=== PATIENT | female | born 1965 | race African-American/Black ===

== ENCOUNTER 2024-04-19 20:33 | Observation (INO) | payer MEDICARE ==
--- NOTE | 2024-04-19 20:49 | ED ---
General Adult HPI - General Chief complaint: Chest Pain Stated complaint: Chest pain Time Seen by Provider: 04/19/24 20:34 Source: EMS Mode of arrival: EMS Limitations: no limitations - History of Present Illness Initial comments: Patient is a 59-year-old female past medical history of hypertension, cocaine abuse, alcohol abuse in remission presenting today from [facility] for chest pain. Patient states she went to get out of bed and began having pressure-like chest pain across the right side of her chest that radiated to her back. EMS was called, no medications were given prior to arrival. Patient denies diaphoresis, nausea, vomiting. Endorses associated shortness of breath. Denies recent fevers. Endorses cough productive of clear sputum. Denies hemoptysis. She is a current smoker. States she has not used cocaine today and has been at [facility] for the last 3 days for recovery for alcohol and cocaine abuse. Pt's mother had a heart attack in her 40s. Pt states that she was told she had a "mini stroke" and "mini heart attack" when she was admitted to [facility] 3 years ago. Takes metoprolol BID, unsure of dose. - Related Data Allergies Allergy/AdvReac Type Severity Reaction Status Date / Time aspirin AdvReac Nausea & Verified 04/19/24 20:45 Vomiting Review of Systems ROS Statement: Those systems with pertinent positive or pertinent negative responses have been documented in the HPI. ROS Other: All systems not noted in ROS Statement are negative. Constitutional: Denies: fever, chills Eyes: Denies: vision change Respiratory: Reports: cough, dyspnea. Denies: hemoptysis Cardiovascular: Reports: chest pain. Denies: edema Gastrointestinal: Denies: abdominal pain, nausea, vomiting Neurological: Denies: headache, weakness, numbness Past Medical History Past Medical History: COPD, Hypertension History of Any Multi-Drug Resistant Organisms: None Reported Past Surgical History: Hernia Repair, Orthopedic Surgery Additional Past Surgical History / Comment(s): Cyst removed from back Past Psychological History: Schizophrenia Smoking Status: Current every day smoker Past Alcohol Use History: Heavy Past Drug Use History: Cocaine, Marijuana, Opiates, Prescription Drug Abuse General Exam - General Exam Comments Initial Comments: PE: CONSTITUTIONAL: No apparent distress, well appearing SKIN: Warm, dry, no jaundice, hives or petechiae EYES: Pupils are equally round, extraocular movements intact without nystagmus, clear conjunctiva, non-icteric sclera HENT: Normocephalic, atraumatic, moist mucus membranes, oropharynx clear without exudates NECK: , Full range of motion, normal appearance PULMONARY: Scant rhonchi bilaterally, no crackles or wheezes, normal excursion, no accessory muscle use and no stridor CARDIOVASCULAR: Regular rate, rhythm, normal S1 and S2. No appreciated murmurs, rubs or gallops. Strong radial pulses with intact distal perfusion. No lower extremity edema. Some reproducible chest wall tenderness palpation of the right chest wall GASTROINTESTINAL: Soft, active bowel sounds throughout, non-tender, non- distended, no palpable masses, no rebound or guarding. No hepatosplenomegaly MUSCULOSKELETAL: Extremities have no gross deformity, no edema, redness, or swelling. No calf swelling NEUROLOGIC:_a/o x 3, GCS 15, normal mentation and speech. Moves all extremities x 4 without motor or sensory deficit PSYCHIATRIC:_normal mood and affect, thought process is clear and linear Limitations: no limitations Course Vital Signs 04/19/24 04/19/24 04/19/24 20:39 21:43 22:06 Temperature 98.4 F Pulse Rate 67 70 68 Respiratory 18 16 18 Rate Blood Pressure 170/125 152/116 140/91 O2 Sat by Pulse 98 99 95 Oximetry 04/19/24 04/20/24 23:28 00:26 Temperature Pulse Rate 74 71 Respiratory 16 18 Rate Blood Pressure 142/94 122/72 O2 Sat by Pulse 98 96 Oximetry EKG Findings - EKG Comments: EKG Findings:: Sinus rhythm with first-degree AV block, rate 60 bpm GA interval 220 ms, QT/QTc 402/411 ms, normal axis, no ST elevations or depressions, no STEMI, no prior for comparison Medical Decision Making - Medical Decision Making Was pt. sent in by a medical professional or institution (, PA, LODGING FACILITIES ATTENDANT, urgent care, hospital, or correction...) When possible be specific @Patient was sent from [facility] Did you speak to anyone other than the patient for history (EMS, parent, family, police, friend...)? What history was obtained from this source @ -[No] Did you review nursing and triage notes (agree or disagree)? Why? @ -[I reviewed nursing and triage notes] Were old charts reviewed (outside hosp., previous admission, EMS record, old EKG, old radiological studies, urgent care reports/EKG's, correction records)? Report findings @ -[Medical records reviewed] Differential Diagnosis (chest pain, altered mental status, abdominal pain women, abdominal pain men, vaginal bleeding, weakness, fever, dyspnea, syncope, headache, dizziness, GI bleed, back pain, seizure, CVA, palpatations, mental health, musculoskeletal)? @Differential Chest Pain: Stable Angina, Unstable Angina, STEMI, NSTEMI Aortic Dissection, pericarditis, pleurisy, chostochondirits, Pneumothorax, Musculoskeletal, Esophageal Spasm GERD, Cholecystitis, Pancreatitis, Zoster, this is not meant to be an all- inclusive list. EKG interpreted by me (3pts min.). @ -[As above] X-rays interpreted by me (1pt min.). @ -[None done] CT interpreted by me (1pt min.). @On review of CT scan I see no evidence of aortic dissection U/S interpreted by me (1pt. min.). @ -[None done] What testing was considered but not performed or refused? (CT, X-rays, U/S, labs)? Why? @ -[None] What meds were considered but not given or refused? Why? @IV morphine was considered for pain control however patient's pain became controlled with sublingual nitroglycerin Did you discuss the management of the patient with other professionals (professionals i.e. , PA, LODGING FACILITIES ATTENDANT, lab, RT, psych nurse, social service assistant, circuit breaker supervisor, teacher, plant protection officer, caseworker)? Give summary @ -[No] Was smoking cessation discussed for >3mins.? @ -[No] Was critical care preformed (if so, how long)? @ -Yes 35 minutes Were there social determinants of health that impacted care today? How? (Homelessness, low income, unemployed, alcoholism, drug addiction, transportation, low edu. Level, literacy, decrease access to med. care, senior living, rehab)? @ -[No] Was there de-escalation of care discussed even if they declined (Discuss DNR or withdrawal of care, Hospice)? @ -[No] What co-morbidities impacted this encounter? (DM, HTN, Smoking, COPD, CAD, Cancer, CVA, ARF, Chemo, Hep., AIDS, mental health diagnosis, sleep apnea, morbid obesity)? @Hypertension, remote history alcohol and drug abuse Was patient admitted / discharged? Hospital course, mention meds given and route, prescriptions, significant lab abnormalities, going to OR and other pertinent info. @ -Admission-patient is a pleasant 59-year-old female past medical history hypertension, currently in recovery from alcohol and drug dependence, presenting today for right sided chest pressure radiating to the back that began upon trying to stand from her bed earlier this evening. Of note, pt denies any cocaine use today or since admission to [facility]. Patient is significantly hypertensive on arrival, 170/125, in no acute distress. Complete history and physical exam performed. Will plan for subungual nitroglycerin for chest pain and hypertension, given chest pain radiating to back and significant hype rtension CT dissection study was ordered in addition to comprehensive labs. 324 mg aspirin. Will add morphine for pain control should patient's pain fail to be controlled with nitroglycerin. Patient agreeable plan of care Labs and imaging reviewed. Grossly within normal limits. Abnormal values not concerning for acute pathology related to presenting complaint. Including normal initial troponin. CT dissection study negative for dissection. Did note bulky uterus. On reassessment, blood pressure is much improved status post sublingual nitro, systolic blood pressure in 190, patient noted moderate improvement in pain with sublingual nitroglycerin however it is still present. Patient was given additional sublingual nitroglycerin, patient did develop a headache after for sublingual nitroglycerin so Tylenol was ordered. Discussed with patient results with her and plan for admission given significant risk factors insetting of chest pain hypertension. Patient agreeable w/ plan of car e. Case discussed with CAROLIN Elias, kindly accepts patient for admission. Of note, pt requested her nightly dose of metoprolol. Unsure of dose. Dose not available in chart on review. Ordered 25 mg BID. Undiagnosed new problem with uncertain prognosis? @ -[No] Drug Therapy requiring intensive monitoring for toxicity (Heparin, Nitro, Insulin, Cardizem)? @ -[No] Were any procedures done? @ -[No] Diagnosis/symptom? Hypertensive urgency, Chest Pain Acute, or Chronic, or Acute on Chronic? acute Uncomplicated (without systemic symptoms) or Complicated (systemic symptoms)? complicated Side effects of treatment? @ -[No] Exacerbation, Progression, or Severe Exacerbation? @ -[No] Poses a threat to life or bodily function? How? (Chest pain, [place], [place], pneumonia, PE, COPD, DKA, ARF, appy, cholecystitis, CVA, Diverticulitis, Homicidal, Suicidal, threat to staff... and all critical care pts) Yes - Lab Data Result diagrams: 04/19/24 20:58 04/19/24 20:58 Lab Results 04/19/24 04/19/24 04/19/24 Range/Units 20:58 20:58 20:58 WBC 6.3 (3.8-10.6) k/uL RBC 4.40 (3.80-5.40) m/uL Hgb 14.0 (11.4-16.0) gm/dL Hct 43.9 (34.0-46.0) % MCV 99.9 (80.0-100.0) fL MCH 31.8 (25.0-35.0) pg MCHC 31.8 (31.0-37.0) g/dL RDW 15.1 (11.5-15.5) % Plt Count 355 (150-450) k/uL MPV 7.0 Neutrophils % 55 % Lymphocytes % 38 % Monocytes % 2 % Eosinophils % 3 % Basophils % 0 % Neutrophils # 3.4 (1.3-7.7) k/uL Lymphocytes # 2.4 (1.0-4.8) k/uL Monocytes # 0.1 (0-1.0) k/uL Eosinophils # 0.2 (0-0.7) k/uL Basophils # 0.0 (0-0.2) k/uL Macrocytosis Slight PT 9.7 L (10.0-12.5) sec INR 0.9 (<1.2) APTT 24.5 (22.0-30.0) sec Sodium 138 (137-145) mmol/L Potassium 4.9 (3.5-5.1) mmol/L Chloride 106 (98-107) mmol/L Carbon Dioxide 22 (22-30) mmol/L Anion Gap 10 mmol/L BUN 15 (7-17) mg/dL Creatinine 0.60 (0.52-1.04) mg/dL Est GFR (CKD-EPI)AfAm >90 (>60 ml/min/1.73 sqM) Est GFR (CKD-EPI)NonAf >90 (>60 ml/min/1.73 sqM) Glucose 96 (74-99) mg/dL Calcium 9.4 (8.4-10.2) mg/dL Magnesium 1.8 (1.6-2.3) mg/dL Total Bilirubin 0.5 (0.2-1.3) mg/dL AST 29 (14-36) U/L ALT 13 (4-34) U/L Alkaline Phosphatase 74 (38-126) U/L Troponin I (0.000-0.034) ng/mL NT-Pro-B Natriuret Pep 73 pg/mL Total Protein 7.9 (6.3-8.2) g/dL Albumin 4.4 (3.5-5.0) g/dL Lipase 55 (23-300) U/L 04/19/24 Range/Units 20:58 WBC (3.8-10.6) k/uL RBC (3.80-5.40) m/uL Hgb (11.4-16.0) gm/dL Hct (34.0-46.0) % MCV (80.0-100.0) fL MCH (25.0-35.0) pg MCHC (31.0-37.0) g/dL RDW (11.5-15.5) % Plt Count (150-450) k/uL MPV Neutrophils % % Lymphocytes % % Monocytes % % Eosinophils % % Basophils % % Neutrophils # (1.3-7.7) k/uL Lymphocytes # (1.0-4.8) k/uL Monocytes # (0-1.0) k/uL Eosinophils # (0-0.7) k/uL Basophils # (0-0.2) k/uL Macrocytosis PT (10.0-12.5) sec INR (<1.2) APTT (22.0-30.0) sec Sodium (137-145) mmol/L Potassium (3.5-5.1) mmol/L Chloride (98-107) mmol/L Carbon Dioxide (22-30) mmol/L Anion Gap mmol/L BUN (7-17) mg/dL Creatinine (0.52-1.04) mg/dL Est GFR (CKD-EPI)AfAm (>60 ml/min/1.73 sqM) Est GFR (CKD-EPI)NonAf (>60 ml/min/1.73 sqM) Glucose (74-99) mg/dL Calcium (8.4-10.2) mg/dL Magnesium (1.6-2.3) mg/dL Total Bilirubin (0.2-1.3) mg/dL AST (14-36) U/L ALT (4-34) U/L Alkaline Phosphatase (38-126) U/L Troponin I <0.012 (0.000-0.034) ng/mL NT-Pro-B Natriuret Pep pg/mL Total Protein (6.3-8.2) g/dL Albumin (3.5-5.0) g/dL Lipase (23-300) U/L Disposition Clinical Impression: Chest pain, Hypertensive urgency Disposition: ADMITTED IP TO THIS HOSP Condition: Stable
[2024-04-19] MEDS: ASPIRIN 81 MG PO STA (21:03)
[2024-04-19] MEDS: ONDANSETRON 4 MG/2 ML VIAL IVP STA (21:04)
[2024-04-19] MEDS: NITROGLYCERIN SL TABS 0.4 MG TAB SUBLINGUAL STA (21:04)
[2024-04-19 21:24] LABS: Basophils % (A) 0 %; Eosinophils # (A) 0.2 k/uL (0-0.7); Eosinophils % (A) 3 %; HCT 43.9 % (34.0-46.0); Lymphocytes # (A) 2.4 k/uL (1.0-4.8); Lymphocytes % (A) 38 %; MCH 31.8 pg (25.0-35.0); MCHC 31.8 g/dL (31.0-37.0); MCV 99.9 fL (80.0-100.0); Macrocytosis Slight; Monocytes # (A) 0.1 k/uL (0-1.0); Monocytes % (A) 2 %; Neutrophils # (A) 3.4 k/uL (1.3-7.7); Neutrophils % (A) 55 %; Platelet Count 355 k/uL (150-450); RDW 15.1 % (11.5-15.5); WBC 6.3 k/uL (3.8-10.6)
[2024-04-19 21:33] LABS: INR 0.9 (<1.2); Partial Thromboplastin Time 24.5 sec (22.0-30.0); Prothrombin Time 9.7 sec (10.0-12.5)
[2024-04-19 21:39] LABS: ALT 13 U/L (4-34); AST 29 U/L (14-36); African American GFR (CKD) >90 (>60 ml/min/1.73 sqM); Albumin 4.4 g/dL (3.5-5.0); Alkaline Phosphatase 74 U/L (38-126); Anion Gap 10 mmol/L; Blood Urea Nitrogen 15 mg/dL (7-17); Calcium 9.4 mg/dL (8.4-10.2); Carbon Dioxide 22 mmol/L (22-30); Chloride 106 mmol/L (98-107); Glucose 96 mg/dL (74-99); Lipase 55 U/L (23-300); Magnesium 1.8 mg/dL (1.6-2.3); Non-African American GFR(CKD) >90 (>60 ml/min/1.73 sqM); Potassium 4.9 mmol/L (3.5-5.1); Sodium 138 mmol/L (137-145); Total Bilirubin 0.5 mg/dL (0.2-1.3); Total Protein 7.9 g/dL (6.3-8.2)
--- NOTE | 2024-04-19 21:43 | CT ---
EXAMINATION TYPE: CT angio thor/abd pel aorta DATE OF EXAM: 04/19/2024 9:32 PM COMPARISON: None. CLINICAL INDICATION: Female, 59 years old with history of chest pain rad. to back, HTN, back and ches t pain with elevated BP TECHNIQUE: Axial images at 5 mm thick sections. Reconstructed images in the coronal plane. Delayed images through the kidneys. Contrast used:100ml mL of Isovue 300 with IV Contrast, (none if empty) Oral contrast used: (none if empty) CT DLP: 1783 mGycm, Automated exposure control for dose reduction was used. FINDINGS: CT CHEST: Portion of the thyroid visualized is normal. No suspicious lung nodules or focal infiltrates are present. Extensive upper lung emphysematous changes are present. Very large bulla is present in the right apex . No enlarged mediastinal or hilar adenopathy is evident. The ascending aorta diameter at the level of the main pulmonary artery is 3.6 cm. The main pulmonary artery diameter at the bifurcation is 3.5 cm. Aorta tapers normally throughout its visualized cours e1. No dissection is evident. CT ABDOMEN: Liver: Normal Spleen: Normal Pancreas: Normal Adrenal glands: The adrenal glands are normal. Gallbladder: Normal Kidneys: No masses are evident. No hydronephrosis is present. No cysts are present. Delayed images were obtained through the kidneys, which remain unremarkable. Aorta: Vascular calcification is within the aorta. Air tapers to its abdominal course to the bifurca tion. Common iliac vessels appear normal. Internal and external iliac vessels are patent. Common femo ral arteries are patent. No dissections are evident. Inferior vena cava: Normal. CT PELVIS: Loops of bowel within the abdomen and pelvis are normal. This study is without oral contrast limi ting bowel evaluation Appendix: Normal as visualized. Urinary bladder: Normal. Genitourinary structures: Uterus is prominent adnexa appear within normal limits Osseous structures: No suspicious lytic or sclerotic lesions. IMPRESSION: 1. Vascular calcification within the aorta. No dissection or aneurysm is evident. No focal stenosis i dentified. 2. Somewhat bulky uterus. 3. Advanced emphysematous changes with especially notable bleb or bulla at the right apex [facility], , 04/19/2024 9:40 PM
[2024-04-19 21:47] LABS: NT-Pro-B-Type Natriuretic Pept 73 pg/mL
[2024-04-19] MEDS: ACETAMINOPHEN TAB 325 MG TAB PO STA (22:16)
[2024-04-19] MEDS: MAG HYDROX/AL HYDROX/SIMETH 30 ML CUP PO STA (22:16)
[2024-04-19] MEDS: FAMOTIDINE 20 MG TAB PO STA (22:16)
[2024-04-19] MEDS ORDERED: NALOXONE 0.4 MG/ML 1 ML VIAL IV PRN (23:33)
[2024-04-19] MEDS ORDERED: ONDANSETRON 4 MG/2 ML VIAL IVP PRN (23:33)
[2024-04-19] MEDS ORDERED: MAG HYDROX/AL HYDROX/SIMETH 30 ML CUP PO PRN (23:33)
[2024-04-19] MEDS ORDERED: CALCIUM CARBONATE 500 MG CHEWABLE PO PRN (23:33)
[2024-04-19] MEDS ORDERED: traMADol 50 MG TAB PO PRN (23:33)
[2024-04-20] MEDS: METOPROLOL TARTRATE 25 MG TAB PO SCH (00:26)
[2024-04-20] MEDS ORDERED: ACETAMINOPHEN TAB 325 MG TAB PO PRN (04:00)
[2024-04-20] MEDS: ENOXAPARIN 40 MG/0.4 ML SYRINGE SQ SCH (08:14)
[2024-04-20] MEDS: FAMOTIDINE 20 MG TAB PO SCH (08:14)
[2024-04-20] MEDS ORDERED: DOBUTamine DRIP for NUC MED 500 MG in DEXTROSE/WATER 1 250ML.BAG IV PRN (08:15)
[2024-04-20] MEDS: NICOTINE 21MG/24HR PATCH TRANSDERM SCH (08:16)
--- NOTE | 2024-04-20 10:44 | CA ---
Transthoracic Echo Report Name: Clarence Reynoso Age: 59 Gender: F : 1965 Exam Date: 04/20/2024 07:38 Exam Location: [facility] Ht (in): 63 Wt (lb): 191 Ordering Physician: La Nena Jean MD Attending/Referring Phys: Counter Dish Carrier Graciela Bradley RDCS Procedure CPT: Indications: chest pain, HTN Cardiac Hx: Technical Quality: Fair Contrast 1: Total Dose (mL): Contrast 2: Total Dose (mL): MEASUREMENTS (Male / Female) Normal Values 2D ECHO LV Diastolic Diameter PLAX 4.6 cm 4.2 - 5.9 / 3.9 - 5.3 cm LV Systolic Diameter PLAX 2.4 cm IVS Diastolic Thickness 1.1 cm 0.6 - 1.0 / 0.6 - 0.9 cm LVPW Diastolic Thickness 0.9 cm 0.6 - 1.0 / 0.6 - 0.9 cm LV Relative Wall Thickness 0.4 RV Internal Dim ED PLAX 1.8 cm LA Systolic Diameter LX 4.1 cm 3.0 - 4.0 / 2.7 - 3.8 cm LV Diastolic Volume MOD BP 46.3 cm??? 67 - 155 / 56 - 104 cm??? LV Systolic Volume MOD BP 18.2 cm??? 22 - 58 / 19 - 49 cm??? LV Ejection Fraction MOD BP 60.7 % >= 55 % LV Cardiac Index MOD BP 857.9 cm???/min???m??? LV Diastolic Volume MOD 4C 42.8 cm??? LV Systolic Volume MOD 4C 20.7 cm??? LV Ejection Fraction MOD 4C 51.6 % LV Cardiac Index MOD 4C 674.4 cm???/min???m??? LV Diastolic Length 4C 6.8 cm LV Systolic Length 4C 5.3 cm LV Diastolic Volume MOD 2C 43.0 cm??? LV Systolic Volume MOD 2C 16.1 cm??? LV Ejection Fraction MOD 2C 62.6 % LV Cardiac Index MOD 2C 821.7 cm???/min???m??? LV Diastolic Length 2C 5.8 cm LV Systolic Length 2C 5.1 cm M-MODE Aortic Root Diameter MM 3.1 cm LA Systolic Diameter MM 4.2 cm LA Ao Ratio MM 1.4 AV Cusp Separation MM 2.4 cm DOPPLER Mitral E Point Velocity 59.4 cm/s Mitral A Point Velocity 54.6 cm/s Mitral E to A Ratio 1.1 MV Deceleration Time 240.6 ms MV E' Velocity 5.3 cm/s Mitral E to MV E' Ratio 11.3 TR Peak Velocity 188.3 cm/s TR Peak Gradient 14.2 mmHg Right Ventricular Systolic Press 24.4 mmHg FINDINGS Left Ventricle Left ventricular ejection fraction is estimated at 55-60 %. Normal left ventricular systolic function with no obvious regional wall motion abnormalities. Left ventricular cavity size normal. Right Ventricle Normal right ventricular size and function. Right Atrium Normal right atrial size. Left Atrium Mildly increased left atrial diameter. Mitral Valve Structurally normal mitral valve. No mitral stenosis. Mild mitral regurgitation. Aortic Valve Trileaflet aortic valve. No aortic valve stenosis or regurgitation. Tricuspid Valve Structurally normal tricuspid valve. mild tricuspid regurgitation. No tricuspid stenosis. Pulmonic Valve Structurally normal pulmonic valve. Trace pulmonic regurgitation. No pulmonic stenosis. Pericardium No pericardial or pleural effusion. Aorta Normal size aortic root and proximal ascending aorta. CONCLUSIONS 1. Normal left ventricular size and systolic function 2. Mild mitral and tricuspid regurgitation with normal pulmonary pressure Previewed by: Dr. Aneta Adam MD (Electronically Signed) Final Date: 20 April 2024 10:43
--- NOTE | 2024-04-20 12:24 | P.CRDCN ---
History of Present Illness History of present illness: HISTORY OF PRESENT ILLNESS: This is a 59-year-old male with a past medical history significant for schizophrenia, alcohol abuse, and drug use including crack and marijuana, and nicotine dependence. 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 We have been asked to see the patient in consultation for chest pain. Patient examined at the bedside in the emergency room. Patient states that she currently resides in [place] but she is here in [place] at [facility] for drug rehabilitation for crack, marijuana, and alcohol use. She states that she has been at [facility] for 4 days. She states that yesterday she began having chest pain in the middle of her chest. She denied having any shortness of breath. Denied any dizziness or lightheadedness. She notified the staff at [facility]. Her blood pressure was taken and found to be elevated in the 200s. Blood pressure right now is in the 130s. She denies any chest pain at the time of examination. She denies any known history of CAD. She is also a current cigarette smoker. DIAGNOSTICS: - EKG reveals sinus mechanism with no signs of acute ischemia - CT angio thoracic/aortic: Vascular calcification within the aorta. No dissection or aneurysm. Somewhat bulky uterus. Advanced emphysematous changes - Laboratory data: WBC 6.3. Hemoglobin 14.0. Platelet count 355. Sodium 138. Potassium 4.9. BUN 15. Creatinine 0.60. Troponin negative x 3. proBNP 73. - Current home cardiac medications include metoprolol 50 mg twice a day. - No previous echocardiogram, stress test, or cardiac catheterization available in EMR for review REVIEW OF SYSTEMS: At the time of my exam: CONSTITUTIONAL: Denies fever or chills. HEENT: Denies blurred vision, vision changes, or eye pain. Denies hemoptysis CARDIOVASCULAR: Denies chest pain. Denies orthopnea. Denies PND. Denies palpitations RESPIRATORY: Denies shortness of breath. GASTROINTESTINAL: Denies abdominal pain. Denies nausea or vomiting. HEMATOLOGIC: Denies bleeding disorders. GENITOURINARY: Denies any blood in urine. SKIN: Denies pruitis. Denies rash. PHYSICAL EXAM: VITAL SIGNS: Reviewed. GENERAL: Well-developed in no acute distress. HEENT: Head is normocephalic. Pupils are equal, round. Sclerae anicteric. Mucous membranes of the mouth are moist. Neck supple. No JVD or thyromegaly LUNGS: Respirations even and unlabored. Lungs essentially clear to auscultation bilaterally. HEART: Regular rate and rhythm. S1 and S2 heard. ABDOMEN: Soft. Nondistended. Nontender. EXTREMITIES: Normal range of motion. No clubbing or cyanosis. Peripheral pulses intact. No lower extremity edema NEUROLOGIC: Awake and alert. Oriented x 3. ASSESSMENT: Chest pain, troponin negative x 3 Hypertension History of alcohol abuse History of drug use including crack and marijuana Nicotine dependence Schizophrenia Obesity: BMI 33.8 PLAN: An acute coronary event has been ruled out Obtain 2D echo to assess cardiac structure and function Patient to undergo dobutamine stress echo today If negative, the patient may be discharged back to [facility] from a cardiac standpoint Nurse practitioner note has been reviewed by physician. Signing provider agrees with the documented findings, assessment, and plan of care documented by SUSTAINABLE PRODUCTS MARKETING MANAGER as a scribe. Past Medical History Past Medical History: COPD, Hypertension History of Any Multi-Drug Resistant Organisms: None Reported Past Surgical History: Hernia Repair, Orthopedic Surgery Additional Past Surgical History / Comment(s): Cyst removed from back Past Psychological History: Schizophrenia Smoking Status: Current every day smoker Past Alcohol Use History: Heavy Past Drug Use History: Cocaine, Marijuana, Opiates, Prescription Drug Abuse Medications and Allergies Home Medications Medication Instructions Recorded Confirmed Type Acetaminophen Tab [Tylenol] 650 mg PO Q4H PRN 04/20/24 04/20/24 History Albuterol Nebulized [Ventolin 2.5 mg INHALATION RT-Q4H PRN 04/20/24 04/20/24 History Nebulized] Calcium Phos/D3/Magnesium/Zinc 1 tab PO TID PRN 04/20/24 04/20/24 History [Pjcobnv-Ikj-Vajv-Vitamin D3] Chlorpheniramine Maleate 4 mg PO Q4H PRN 04/20/24 04/20/24 History [Chlor-Trimeton] Docusate [Colace] 100 mg PO BID 04/20/24 04/20/24 History Donepezil [Aricept] 5 mg PO HS 04/20/24 04/20/24 History Loperamide HCl [Imodium A-D] 4 mg PO QID PRN 04/20/24 04/20/24 History Mag Hydrox/Aluminum Hyd/Simeth 30 ml PO Q4H PRN 04/20/24 04/20/24 History [Mylanta Maximum Strength Liq] Metoprolol Tartrate [Lopressor] 50 mg PO BID 04/20/24 04/20/24 History Multivitamins, Thera [Multivitamin 1 tab PO DAILY 04/20/24 04/20/24 History (formulary)] OLANZapine [ZyPREXA] 10 mg PO HS 04/20/24 04/20/24 History Thiamine [Vitamin B-1] 100 mg PO DAILY 04/20/24 04/20/24 History ondansetron HCL [Ondansetron HCl] 8 mg PO Q6H PRN 04/20/24 04/20/24 History Allergies Allergy/AdvReac Type Severity Reaction Status Date / Time aspirin AdvReac Nausea & Verified 04/20/24 08:55 Vomiting Physical Exam Vitals: Vital Signs Temp Pulse Resp BP Pulse Ox 04/20/24 08:02 97 04/20/24 05:45 63 16 106/70 96 04/20/24 00:26 71 18 122/72 96 04/19/24 23:28 74 16 142/94 98 04/19/24 22:06 68 18 140/91 95 04/19/24 21:43 70 16 152/116 99 04/19/24 20:39 98.4 F 67 18 170/125 98 Intake and Output 04/19/24 04/20/24 04/20/24 22:59 06:59 14:59 Other: Weight 86.636 kg Results 04/19/24 20:58 04/19/24 20:58 Cardiac Enzymes 04/19/24 04/19/24 04/20/24 Range/Units 20:58 20:58 02:42 AST 29 (14-36) U/L Troponin I <0.012 <0.012 (0.000-0.034) ng/mL 04/20/24 Range/Units 07:12 AST (14-36) U/L Troponin I <0.012 (0.000-0.034) ng/mL Coagulation 04/19/24 Range/Units 20:58 PT 9.7 L (10.0-12.5) sec APTT 24.5 (22.0-30.0) sec CBC 04/19/24 Range/Units 20:58 WBC 6.3 (3.8-10.6) k/uL RBC 4.40 (3.80-5.40) m/uL Hgb 14.0 (11.4-16.0) gm/dL Hct 43.9 (34.0-46.0) % Plt Count 355 (150-450) k/uL Comprehensive Metabolic Panel 04/19/24 Range/Units 20:58 Sodium 138 (137-145) mmol/L Potassium 4.9 (3.5-5.1) mmol/L Chloride 106 (98-107) mmol/L Carbon Dioxide 22 (22-30) mmol/L BUN 15 (7-17) mg/dL Creatinine 0.60 (0.52-1.04) mg/dL Glucose 96 (74-99) mg/dL Calcium 9.4 (8.4-10.2) mg/dL AST 29 (14-36) U/L ALT 13 (4-34) U/L Alkaline Phosphatase 74 (38-126) U/L Total Protein 7.9 (6.3-8.2) g/dL Albumin 4.4 (3.5-5.0) g/dL Current Medications Generic Name Dose Route Start Last Admin Trade Name Freq PRN Reason Stop Dose Admin Acetaminophen 650 mg 04/20/24 04:00 Acetaminophen Tab 325 Mg Tab PO Q6HR PRN Mild Pain or Fever > 100.5 Al Hydroxide/Mg Hydroxide 15 ml 04/19/24 23:33 Mag Hydrox/Al Hydrox/Simeth 30 Ml Cup PO Q6HR PRN Indigestion Calcium Carbonate/Glycine 1,000 mg 04/19/24 23:33 Calcium Carbonate 500 Mg Chewable PO Q4HR PRN Dyspepsia Enoxaparin Sodium 40 mg 04/20/24 09:00 Enoxaparin 40 Mg/0.4 Ml Syringe SQ DAILY [facility] Famotidine 20 mg 04/20/24 09:00 Famotidine 20 Mg Tab PO BID [facility] Metoprolol Tartrate 25 mg 04/20/24 00:15 04/20/24 00:26 Metoprolol Tartrate 25 Mg Tab PO Not Given BID EDIN Naloxone HCl 0.2 mg 04/19/24 23:33 Naloxone 0.4 Mg/Ml 1 Ml Vial IV Q2M PRN Opioid Reversal Nicotine 1 patch 04/20/24 09:00 Nicotine 21mg/24hr Patch TRANSDERM DAILY [facility] Ondansetron HCl 4 mg 04/19/24 23:33 Ondansetron 4 Mg/2 Ml Vial IVP Q8HR PRN Nausea And Vomiting Tramadol HCl 50 mg 04/19/24 23:33 Tramadol 50 Mg Tab PO Q6H PRN Moderate Pain (Scale 4 to 6) Intake and Output 04/19/24 04/20/24 04/20/24 22:59 06:59 14:59 Other: Weight 86.636 kg 04/19/24 20:58 04/19/24 20:58
[2024-04-20] MEDS: PANTOPRAZOLE 40 MG/10 ML VIAL IVP ONE (12:47)
--- NOTE | 2024-04-20 13:08 | CA ---
Dobutamine Stress Echocardiogram Report Clarence Reynoso Age: 59 Gender: F : 1965 Exam Date: 04/20/2024 10:57 Exam Location: [place] [facility] Ordering Physician: Emily Thomas Referring Physician: [id number] Consumer Affairs Manager: iWlner Joshua Technologist: Ht (in): 63 Wt (lb): 191 Procedure CPT: Indication: CP ICD-9 Codes: Rhythm: Patient History: Cardiac Medications: SEE CHART Medications in past 24 hours: Contrast: N/A Total Dose (mL): NA Stress Results Protocol: Dobutamine Peak Dose (???g/kg/min): 40 Duration (min:sec): Atropine:(mg) None Target HR: 139 Double Product: [id number] Resting HR: 69 Resting BP: 137 / 90 Peak HR: 145 Peak BP: 189 / 83 Max Predicted HR: 163 89 % Max Predicted HR Stress Summary: BP Response: Reason for Termination: Exceeded target heart rate (85% max predicted) Cardiac Symptoms: CHEST PAIN ECG Analysis Resting EKG: Normal sinus rhythm, normal ECG Stress EKG: No abnormal ST/T wave changes with exercise Arrhythmia: None Echo Analysis Base Echo Analysis: Normal resting echocardiogram. Low Echo Anaylsis: Normal wall thickening and motion Peak Echo Analysis: Normal wall motion augmentation with no hypokinesis or dyskinesis Recovery Echo: Normal wall motion MEASUREMENTS (Male/Female) Normal Values CONCLUSIONS 1. Normal electrocardiographic response to dobutamine infusion 2. Normal stress echocardiogram with no evidence of stress- induced ischemia Dr. Aneta Adam MD (Electronically Signed) Final Date: 20 April 2024 13:08
[2024-04-20 14:11] VITALS: BP 138/99; PULSE 90; RESP 18; TEMP 98
--- NOTE | 2024-04-20 14:19 | P.HPIM ---
History of Present Illness Patient is 59-year-old Fe male was sent in here from alcohol rehabilitation and drug rehabilitation program because of complaints of chest pain which is in the epigastric retrosternal area burning sensation. Patient is admitted for chest pain rule out acute coronary symptoms. Patient denied any dizziness lightheadedness associate with chest pain chest pain presently completely resolved at this time chest pain is not associate with food nonpleuritic in nature. CT angio of the thoracic aorta and chest are negative for pulmonary embolism antibiotic dissection. EKG did not show any acute ST-T wave changes. Troponins are negative patient was eval by cardiology echocardiogram was obtained which is within normal limits. Patient underwent dobutamine stress test results of which are pending. REVIEW OF SYSTEMS: All other systems are negative except those mentioned in the HPI PHYSICAL EXAMINATION: GENERAL: The patient is alert and oriented x3, not in any acute distress. Well developed, well nourished. HEENT: Pupils are round and equally reacting to light. EOMI. No scleral icterus. No conjunctival pallor. Normocephalic, atraumatic. No pharyngeal erythema. No thyromegaly. CARDIOVASCULAR: S1 and S2 present. No murmurs, rubs, or gallops. PULMONARY: Chest is clear to auscultation, no wheezing or crackles. ABDOMEN: Soft, nontender, nondistended, normoactive bowel sounds. No palpable organomegaly. MUSCULOSKELETAL: No joint swelling or deformity. EXTREMITIES: No cyanosis, clubbing, or pedal edema. NEUROLOGICAL: Gross neurological examination did not reveal any focal deficits. SKIN: No rashes. Assessment and plan -Chest pain rule out acute coronary syndromes, rule out pulmonary embolism and aortic dissection. 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 Patient underwent stress test if that is negative for any inducible ischemia, patient will be discharged today with 2 weeks of Protonix daily before breakfast -Alcohol gastritis -Alcohol abuse patient last alcohol was 4 days ago patient does not have any withdrawals and do not expect any withdrawals -History of other drugs like marijuana and crack cocaine use patient is in rehabilitation program at this time -Schizophrenia Patient will be discharged if stress test is negative for any inducible ischemia Past Medical History Past Medical History: COPD, Hypertension History of Any Multi-Drug Resistant Organisms: None Reported Past Surgical History: Hernia Repair, Orthopedic Surgery Additional Past Surgical History / Comment(s): Cyst removed from back Past Psychological History: Schizophrenia Smoking Status: Current every day smoker Past Alcohol Use History: Heavy Past Drug Use History: Cocaine, Marijuana, Opiates, Prescription Drug Abuse Medications and Allergies Home Medications Medication Instructions Recorded Confirmed Type Acetaminophen Tab [Tylenol] 650 mg PO Q4H PRN 04/20/24 04/20/24 History Albuterol Nebulized [Ventolin 2.5 mg INHALATION RT-Q4H PRN 04/20/24 04/20/24 History Nebulized] Calcium Phos/D3/Magnesium/Zinc 1 tab PO TID PRN 04/20/24 04/20/24 History [Teampdw-Qyw-Urcf-Vitamin D3] Chlorpheniramine Maleate 4 mg PO Q4H PRN 04/20/24 04/20/24 History [Chlor-Trimeton] Docusate [Colace] 100 mg PO BID 04/20/24 04/20/24 History Donepezil [Aricept] 5 mg PO HS 04/20/24 04/20/24 History Loperamide HCl [Imodium A-D] 4 mg PO QID PRN 04/20/24 04/20/24 History Mag Hydrox/Aluminum Hyd/Simeth 30 ml PO Q4H PRN 04/20/24 04/20/24 History [Mylanta Maximum Strength Liq] Metoprolol Tartrate [Lopressor] 50 mg PO BID 04/20/24 04/20/24 History Multivitamins, Thera [Multivitamin 1 tab PO DAILY 04/20/24 04/20/24 History (formulary)] OLANZapine [ZyPREXA] 10 mg PO HS 04/20/24 04/20/24 History Pantoprazole [Protonix] 40 mg PO DAILY #14 tab 04/20/24 Rx Thiamine [Vitamin B-1] 100 mg PO DAILY 04/20/24 04/20/24 History ondansetron HCL [Zofran] 8 mg PO Q6H PRN 04/20/24 04/20/24 History Allergies Allergy/AdvReac Type Severity Reaction Status Date / Time aspirin AdvReac Nausea & Verified 04/20/24 08:55 Vomiting Physical Exam Vitals: Vital Signs Temp Pulse Resp BP Pulse Ox 04/20/24 14:10 98.0 F 90 18 138/99 100 04/20/24 12:25 98.7 F 80 20 149/89 97 04/20/24 10:32 98.4 F 67 16 153/97 97 04/20/24 09:15 64 16 96 04/20/24 08:13 98.1 F 73 20 135/93 97 04/20/24 08:02 97 04/20/24 05:45 63 16 106/70 96 04/20/24 00:26 71 18 122/72 96 04/19/24 23:28 74 16 142/94 98 04/19/24 22:06 68 18 140/91 95 04/19/24 21:43 70 16 152/116 99 04/19/24 20:39 98.4 F 67 18 170/125 98 Intake and Output 04/19/24 04/20/24 04/20/24 22:59 06:59 14:59 Other: Weight 86.636 kg Results CBC & Chem 7: 04/19/24 20:58 04/19/24 20:58 Labs: Abnormal Lab Results - Last 24 Hours (Table) 04/19/24 Range/Units 20:58 PT 9.7 L (10.0-12.5) sec
--- NOTE | 2024-04-20 14:19 | P.DS ---
Providers Date of admission: 04/19/24 23:33 Attending physician: Tyler More Consults: 04/19/24 23:33 Consult Physician Routine Consulting Provider: Bob Pulido Consult Reason/Comments: Chest pain Do you want consulting provider notified?: Yes, Notify in am Primary care physician: Stated None Hospital Course: Patient is 59-year-old Fe male was sent in here from alcohol rehabilitation and drug rehabilitation program because of complaints of chest pain which is in the epigastric retrosternal area burning sensation. Patient is admitted for chest pain rule out acute coronary symptoms. Patient denied any dizziness lightheadedness associate with chest pain chest pain presently completely resolved at this time chest pain is not associate with food nonpleuritic in nature. CT angio of the thoracic aorta and chest are negative for pulmonary embolism antibiotic dissection. EKG did not show any acute ST-T wave changes. Troponins are negative patient was eval by cardiology echocardiogram was obtained which is within normal limits. Patient underwent dobutamine stress test results of which are pending. REVIEW OF SYSTEMS: All other systems are negative except those mentioned in the HPI PHYSICAL EXAMINATION: GENERAL: The patient is alert and oriented x3, not in any acute distress. Well developed, well nourished. HEENT: Pupils are round and equally reacting to light. EOMI. No scleral icterus. No conjunctival pallor. Normocephalic, atraumatic. No pharyngeal erythema. No thyromegaly. CARDIOVASCULAR: S1 and S2 present. No murmurs, rubs, or gallops. PULMONARY: Chest is clear to auscultation, no wheezing or crackles. ABDOMEN: Soft, nontender, nondistended, normoactive bowel sounds. No palpable organomegaly. MUSCULOSKELETAL: No joint swelling or deformity. EXTREMITIES: No cyanosis, clubbing, or pedal edema. NEUROLOGICAL: Gross neurological examination did not reveal any focal deficits. SKIN: No rashes. Assessment and plan -Chest pain rule out acute coronary syndromes, rule out pulmonary embolism and aortic dissection. 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 Patient underwent stress test if that is negative for any inducible ischemia, p atient will be discharged today with 2 weeks of Protonix daily before breakfast -Alcohol gastritis -Alcohol abuse patient last alcohol was 4 days ago patient does not have any withdrawals and do not expect any withdrawals -History of other drugs like marijuana and crack cocaine use patient is in rehabilitation program at this time -Schizophrenia Patient will be discharged if stress test is negative for any inducible ischemia Patient Condition at Discharge: Stable Plan - Discharge Summary New Discharge Prescriptions: New Pantoprazole [Protonix] 40 mg PO DAILY #14 tab Continue Albuterol Nebulized [Ventolin Nebulized] 2.5 mg INHALATION RT-Q4H PRN PRN Reason: Shortness Of Breath ondansetron HCL [Zofran] 8 mg PO Q6H PRN PRN Reason: Nausea And Vomiting Thiamine [Vitamin B-1] 100 mg PO DAILY Mag Hydrox/Aluminum Hyd/Simeth [Mylanta Maximum Strength Liq] 30 ml PO Q4H PRN PRN Reason: Gi Upset Chlorpheniramine Maleate [Chlor-Trimeton] 4 mg PO Q4H PRN PRN Reason: Allergy Symptoms Calcium Phos/D3/Magnesium/Zinc [Vofvjsy-Lmb-Dbyz-Vitamin D3] 1 tab PO TID PRN PRN Reason: Supplement Donepezil [Aricept] 5 mg PO HS OLANZapine [ZyPREXA] 10 mg PO HS Multivitamins, Thera [Multivitamin (formulary)] 1 tab PO DAILY Acetaminophen Tab [Tylenol] 650 mg PO Q4H PRN PRN Reason: Pain Loperamide HCl [Imodium A-D] 4 mg PO QID PRN PRN Reason: Loose Stool Docusate [Colace] 100 mg PO BID Metoprolol Tartrate [Lopressor] 50 mg PO BID Discharge Medication List Acetaminophen Tab [Tylenol] 650 mg PO Q4H PRN 04/20/24 [History] Albuterol Nebulized [Ventolin Nebulized] 2.5 mg INHALATION RT-Q4H PRN 04/20/24 [History] Calcium Phos/D3/Magnesium/Zinc [Rwojuku-Kjj-Jxgg-Vitamin D3] 1 tab PO TID PRN 04/20/24 [History] Chlorpheniramine Maleate [Chlor-Trimeton] 4 mg PO Q4H PRN 04/20/24 [History] Docusate [Colace] 100 mg PO BID 04/20/24 [History] Donepezil [Aricept] 5 mg PO HS 04/20/24 [History] Loperamide HCl [Imodium A-D] 4 mg PO QID PRN 04/20/24 [History] Mag Hydrox/Aluminum Hyd/Simeth [Mylanta Maximum Strength Liq] 30 ml PO Q4H PRN 04/20/24 [History] Metoprolol Tartrate [Lopressor] 50 mg PO BID 04/20/24 [History] Multivitamins, Thera [Multivitamin (formulary)] 1 tab PO DAILY 04/20/24 [History] OLANZapine [ZyPREXA] 10 mg PO HS 04/20/24 [History] Pantoprazole [Protonix] 40 mg PO DAILY #14 tab 04/20/24 [Rx] Thiamine [Vitamin B-1] 100 mg PO DAILY 04/20/24 [History] ondansetron HCL [Zofran] 8 mg PO Q6H PRN 04/20/24 [History] Follow up Appointment(s)/Referral(s): Ridge Sneed MD [REFERRING] - 1 Week Discharge Disposition: OTHER INSTITUTION NOT DEFINED
== END 2024-04-20 14:10 | disposition other institution (70) ==
LOC: EC 20:33 → 6NMEDSUR 23:33
PROVIDERS: ADMIT Hospitalist; ATTEND Hospitalist
DX: R07.89 Other chest pain (principal); I16.0 Hypertensive urgency; I10 Essential (primary) hypertension; J44.9 Chronic obstructive pulmonary disease, unspecified; F20.9 Schizophrenia, unspecified; K29.20 Alcoholic gastritis without bleeding; F10.10 Alcohol abuse, uncomplicated; F17.210 Nicotine dependence, cigarettes, uncomplicated; E66.9 Obesity, unspecified; Z68.33 Body mass index [BMI] 33.0-33.9, adult; Z79.899 Other long term (current) drug therapy; Z88.6 Allergy status to analgesic agent; Z82.49 Family history of ischemic heart disease and other diseases of the circulatory system
CPT/HCPCS: 96372; 96374 ×2; 99285; 36415; 94760; 93005; 93306; 93351; 83880; 80053; 83690; 83735; 84484 ×2; 85025; 85610; 85730; 71275; 74174; G0378 ×2; S4990; J2405; J1650; Q9967; J2470